=== PATIENT | female | born 1955 | race Caucasian/White ===

== ENCOUNTER → 2016-08-14 | Outpatient (CLI) | payer OTHER ==
[~2016-08-14] MED LIST: BIOIDENTICAL HORMONE; HYDROCODONE-AP1 EAC6 PO; IBUPROFEN 400400 M2 PO; NEURONTIN 300300 M1 PO; NORCO 5-325 TA1 EACH PO; NORFLEX100 MG; NORFLEX100 MG PO; PREDNISONE 10 M10 MG PO; PROGESTERONE100 MG PO; ULTRAM 50MG TAB50 MG PO
== END | disposition home or self-care (01) ==
LOC: MRI 14:16
DX: M25.551 Pain in right hip (principal)

== ENCOUNTER → 2017-02-17 | Outpatient (CLI) | payer OTHER ==
[~2017-02-17] VITALS: Ht 162.6 cm; Wt 74.4 kg
[~2017-02-17] MED LIST changes: +ALLEGRA ALLERG180 MG PO; +VITAMIN D310000 UNIT PO
--- NOTE | ~2017-02-17 | HPC ---
[facility] [address] [place] [address] PAIN MANAGEMENT CONSULTATION Name: KAYCE XAVIER [place] Room #: REG CL MRusty.#: [id number] Admission: 02/17/17 Attend Phys: Krishan Daley DO Discharge: Date of : 57 Report #: [id number] THIS REPORT FOR: //name// CC: Krishan Daley Referring Physician Javad Guzman DATE OF SERVICE: 02/17/2017 CHIEF COMPLAINT: Low back pain, right lower extremity pain with paresthesias. HISTORY OF PRESENT ILLNESS: As you know, the patient is a 61-year-old female who had history of low back pain, right lower extremity pain and paresthesias that presented 10/05/2015, no inciting injury or trauma. She returns today in followup visit having been evaluated by orthopedics and advised that some of her symptoms may be related to her right hip. She underwent a right intraarticular hip injection with orthopedics without improvement in symptoms even transiently. She was subsequently referred back to our clinic to trial a lumbar epidural injection and determine if her symptoms would be amenable to such procedures. She is placing pain score at 2-3/10, pain is exacerbated with walking, standing and sitting for long periods of time, improves with repositioning. ALLERGIES: No known drug allergies. CURRENT MEDICATIONS: Fexofenadine 180 mg once a day, ibuprofen 400 mg 3 times a day, and cholecalciferol 10,000 units per day. SOCIAL HISTORY: The patient continues to smoke 1 pack tobacco per day, has done so for 30 years. Denies IV or illicit drug use, admits to 2 alcohol beverages per week. 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 She is unaccompanied today. IMAGING: No new imaging available. PHYSICAL EXAMINATION: VITAL SIGNS: Blood pressure 160/69, pulse 79, respiratory rate 14 and unlabored, the patient is 98% on room air, height 5 feet 4 inches tall, weight 164 pounds, and BMI calculated 28.1. GENERAL: Well-developed, well-nourished, well-hydrated 61-year-old female, appearing her stated age, placing current pain score at 3/10. HEENT: Normocephalic, atraumatic. Pupils are equal, round, and reactive to light. NEUROLOGIC: Speech is fluent for patient. EXTREMITIES: Show no clubbing, no cyanosis, and no edema. MUSCULOSKELETAL: Lower extremity strength is equal and symmetrical 5/5. Seated straight leg raising negative. Supine straight leg raising appears positive on [facility] [address] [place] [address] PAIN MANAGEMENT CONSULTATION Name: KAYCE XAVIER [place] Room #: REG CL Stone#: [id number] Admission: 02/17/17 Attend Phys: Krishan Daley DO Discharge: Date of : 57 Report #: [id number] the right. Francia's test is mildly positive on the right. Modified Gaenslen's positive for axial low back pain. Ankle clonus negative. Babinski is negative. ASSESSMENT: 1. Symptomatic lumbar radiculopathy. 2. Displacement of lumbar intervertebral disk with radiculopathy. 3. Lumbosacral spondylosis with radiculopathy. 4. Chronic right hip pain secondary to impingement syndrome. 5. Chronic intractable pain. PLAN: 1. The patient returns today in followup visit per the request of her orthopedic surgery team to undergo an epidural injection under fluoroscopic guidance. Workup has been continued for possible right hip pain and imaging does show possible impingement syndrome of the right hip, though when the patient underwent intraarticular hip injection, she received no improvement in symptoms. Symptoms radiate from the low back, buttock area, radiates all the way down the leg to the foot and what appears to be an L5 dermatomal distribution. Given the fact the patient did not see improvement in symptoms with the intraarticular hip injection, she was subsequently referred to our clinic to trial a repeat epidural injection in hopes of improving pain, last epidural injection provided good benefit for the patient in fact 100% improvement in overall pain lasting for 5 months. She returns to undergo an epidural injection in hopes of improving symptoms. 2. No medication changes were made at today's visit. The patient will continue current medical therapy as previously prescribed. 3. The patient will return to our clinic on an as needed basis for possible repeat epidural injection. PROCEDURE NOTE DESCRIPTION OF PROCEDURE: L3-L4 right paramedian epidural steroid injection under fluoroscopic guidance. After obtaining written consent, the patient was taken back to fluoroscopy suite, placed in prone position with pillow under abdomen to decrease lumbar lordosis. Skin overlying lumbosacral area prepped and draped in aseptic fashion. Lumbar intervertebral spaces were identified by AP fluoroscopy. Skin and subcutaneous tissue overlying target site of injection was anesthetized with 3 mL of 1% lidocaine. A 20-gauge 3-1/2-inch Tuohy needle advanced under fluoroscopic guidance towards the epidural space using a right paramedian approach. Epidural space identified using loss of resistance to air technique. After negative aspiration for heme or cerebrospinal fluid, 1 mL of Omnipaque was injected. Lumbar epidurogram was confirmed using both AP and lateral fluoroscopy. After negative aspiration for [facility] [address] [place] [address] PAIN MANAGEMENT CONSULTATION Name: KAYCE XAVIER [place] Room #: REG CLI Stone#: [id number] Admission: 02/17/17 Attend Phys: Krishan Daley DO Discharge: Date of : 57 Report #: [id number] heme or cerebrospinal fluid, 5 mL of solution containing 2 mL 40 mg per mL, 80 mg total triamcinolone, 3 mL lidocaine 1% injected slowly. Needle retracted fpc, needle tract flushed 3 mL 1% lidocaine. Needle then removed. Sterile bandage placed over injection site. No new motor deficits present in the lower extremity following the procedure. The patient tolerated the procedure well, carefully escorted to the recovery room in stable condition. No apparent complications. After meeting discharge criteria, the patient discharged home. <ELECTRONICALLY SIGNED> By: Krishan Daley DO 02/25/17 [id number] Krishan Daley DO /nt
[2017-02-17 14:11] VITALS: BP 168/69
== END | disposition home or self-care (01) ==
LOC: PAIN 06:55
DX: M51.16 Intervertebral disc disorders with radiculopathy, lumbar region (principal); M47.27 Other spondylosis with radiculopathy, lumbosacral region; G89.29 Other chronic pain; M25.851 Other specified joint disorders, right hip; F17.210 Nicotine dependence, cigarettes, uncomplicated

== ENCOUNTER → 2017-06-16 | Outpatient (CLI) | payer OTHER ==
[~2017-06-16] VITALS: Ht 162.6 cm; Wt 73.0 kg
[~2017-06-16] MED LIST changes: +LOSARTAN-HCTZ1 EACH PO; +UNICOMPLEX M TA1 TA1 PO; +ZOLOFT25 MG PO
--- NOTE | ~2017-06-16 | HPC ---
[facility] [address] [place] [address] PAIN MANAGEMENT CONSULTATION Name: KAYCE XAVIER Room #: REG CL M.Scott.#: [id number] Admission: 06/16/17 Attend Phys: Krishan Daley DO Discharge: Date of : 57 Report #: [id number] THIS REPORT FOR: //name// CC: Krishan Guzman MD DATE OF SERVICE: 06/16/2017 CHIEF COMPLAINT: Low back pain, bilateral lower extremity pain, right greater than left. HISTORY OF PRESENT ILLNESS: As you know, the patient is a 61-year-old female who returns today in followup visit stating pain score of 8/10, states pain is sharp in nature, describes pain as exacerbated with turning, bending, getting in and out of car, sitting, improves with "walking it out." She also notes good efficacy with epidural injections providing about 100% improvement in overall pain lasting for a month and a half with previous injection. She returns today in followup visit having received precertification to undergo next in a series of lumbar epidural injections to address lumbar radicular symptoms. ALLERGIES: No known drug allergies. CURRENT MEDICATIONS: Ibuprofen, fexofenadine, cholecalciferol, multivitamin. SOCIAL HISTORY: The patient smokes 1 pack tobacco per day, has done so for 31 years. Denies IV or illicit drug use. Admits to 2 alcohol beverages per week. 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 She is unaccompanied at today's visit. IMAGING: No new imaging available. PHYSICAL EXAMINATION: VITAL SIGNS: Blood pressure 163/58, pulse is 77, respiratory rate 16, unlabored. The patient is 99% on room air. Height 5 feet 4 inches tall, weight 161 pounds, BMI calculated 27.6. GENERAL: Well-developed, well-nourished, well-hydrated 61-year-old female appearing her stated age. She is placing pain score today at 8/10. HEENT: Normocephalic, atraumatic. Pupils equal, round, reactive to light. Extraocular muscles are intact. Speech is fluent for patient. EXTREMITIES: Show no clubbing, no cyanosis, no edema. MUSCULOSKELETAL: Seated straight leg raising negative. Supine straight leg raising is mildly positive on the right. Fabere's test negative. Gait is mildly antalgic favoring right lower extremity over left. There is palpatory tenderness over the SI joint on the right when compared to left. [address] [address] PAIN MANAGEMENT CONSULTATION Name: KAYCE XAVIER [place] Room #: REG CLI Yvonne#: [id number] Admission: 06/16/17 Attend Phys: Krishan Daley DO Discharge: Date of : 57 Report #: [id number] ASSESSMENT: 1. Symptomatic lumbar radiculopathy. 2. Lumbosacral spondylosis with radicular symptoms. 3. Displacement of lumbar intervertebral disk with radiculopathy. 4. Chronic intractable pain. PLAN: 1. The patient returns today in followup visit having received precertification to undergo next in a series of epidural injections. The patient is reporting pain score at 8/10. She does report good improvement in symptoms with the epidural injection, 100% improvement lasting for nearly a month and then a slow and progressive return of symptoms. She returns today in followup visit to undergo this epidural injection. She has been advised risks and benefits of procedure, states understood and wished to proceed. 2. No medication changes were made at today's visit. The patient will continue current medical therapy as previously prescribed. 3. We will see the patient back in followup visit for next in a series of epidural injections under fluoroscopic guidance and to discuss other potential treatment options. PROCEDURE NOTE DESCRIPTION OF PROCEDURE: L3-L4 lumbar epidural steroid injection under fluoroscopic guidance. After obtaining written consent, the patient was taken back to fluoroscopy suite, placed in prone position with pillow under abdomen to decrease lumbar lordosis. Skin overlying lumbosacral area then prepped and draped in aseptic fashion. Lumbar intervertebral spaces identified by AP fluoroscopy. Skin and subcutaneous tissue overlying target site of injection was anesthetized with 3 mL of 1% lidocaine. A 20-gauge 3-1/2 inch Tuohy needle advanced under fluoroscopic guidance towards the epidural space using a right paramedian approach. Epidural space identified using loss of resistance to air technique. After negative aspiration for heme or cerebrospinal fluid, 1 mL of Omnipaque was injected. Lumbar epidurogram was confirmed using both AP and lateral fluoroscopy. After negative aspiration for heme or cerebrospinal fluid, 5 mL of a solution containing 2 mL 40 mg per mL, 80 mg total triamcinolone, 3 mL lidocaine 1% injected slowly. Needle retracted fci, flushed with 1 mL of 1% lidocaine and removed. Sterile bandage placed over injection site. No new motor deficits present in the lower extremity following the procedure. The patient tolerated procedure well, carefully escorted to the recovery room in [facility] [address] [place] [address] PAIN MANAGEMENT CONSULTATION Name: AKYCE XAVIER Room #: REG CLI Rusty.#: [id number] Admission: 06/16/17 Attend Phys: Krishan Daley DO Discharge: Date of : 57 Report #: [id number] stable condition. No apparent complications. After meeting discharge criteria, the patient discharged home. <ELECTRONICALLY SIGNED> By: Krishan Daley DO 06/23/17 [id number] Krishan Daley DO /nt
[2017-06-16 08:13] VITALS: BP 163/58
== END | disposition home or self-care (01) ==
LOC: PAIN 07:11
DX: M51.16 Intervertebral disc disorders with radiculopathy, lumbar region (principal); M47.27 Other spondylosis with radiculopathy, lumbosacral region; G89.29 Other chronic pain; F17.210 Nicotine dependence, cigarettes, uncomplicated; Z98.890 Other specified postprocedural states

== ENCOUNTER → 2018-01-08 | Outpatient (CLI) | payer OTHER ==
[~2018-01-08] MED LIST changes: -LOSARTAN-HCTZ1 EACH PO; -ZOLOFT25 MG PO
== END ==
LOC: MRI 14:42
DX: M47.26 Other spondylosis with radiculopathy, lumbar region (principal); M51.16 Intervertebral disc disorders with radiculopathy, lumbar region; M48.061 Spinal stenosis, lumbar region without neurogenic claudication

== ENCOUNTER → 2018-03-30 | Outpatient (CLI) | payer OTHER ==
[~2018-03-30] MED LIST changes: +LOSARTAN-HCTZ1 EACH PO; +ZOLOFT25 MG PO
== END ==
LOC: RAD 10:33
DX: Z12.31 Encounter for screening mammogram for malignant neoplasm of breast (principal)

== ENCOUNTER 2019-01-10 08:55 | Emergency (ER) | payer OTHER ==
[~2019-01-10] VITALS: Ht 162.6 cm; Wt 72.6 kg
[2019-01-10 08:55] VITALS: BP 153/76
[2019-01-10] MEDS ORDERED: ZOLOFT50 MG PO (09:02)
== END 2019-01-10 09:54 | disposition home or self-care (01) ==
LOC: ER 08:55
DX: S60.571A Other superficial bite of hand of right hand, initial encounter (principal); F17.210 Nicotine dependence, cigarettes, uncomplicated; Z98.890 Other specified postprocedural states; Z90.49 Acquired absence of other specified parts of digestive tract; Z88.1 Allergy status to other antibiotic agents; W55.51XA Bitten by raccoon, initial encounter; Y93.89 Activity, other specified; Y92.89 Other specified places as the place of occurrence of the external cause; Y99.8 Other external cause status

== ENCOUNTER 2019-01-13 13:14 | Emergency (ER) | payer OTHER ==
[~2019-01-13] VITALS: Ht 162.6 cm; Wt 70.3 kg
[~2019-01-13 13:14] MED LIST changes: +ZOLOFT50 MG PO
[2019-01-13 14:06] VITALS: BP 131/65
== END 2019-01-13 14:07 | disposition home or self-care (01) ==
LOC: ER 13:14
DX: Z23 Encounter for immunization (principal); Z20.3 Contact with and (suspected) exposure to rabies; F17.210 Nicotine dependence, cigarettes, uncomplicated; Z88.1 Allergy status to other antibiotic agents; Z79.899 Other long term (current) drug therapy; Z98.890 Other specified postprocedural states

== ENCOUNTER 2019-01-17 15:38 | Emergency (ER) | payer OTHER ==
[~2019-01-17] VITALS: Ht 162.6 cm; Wt 70.3 kg
[2019-01-17 15:38] VITALS: BP 154/76
== END 2019-01-17 15:42 | disposition home or self-care (01) ==
LOC: ER 15:38
DX: S40.811D Abrasion of right upper arm, subsequent encounter (principal); F17.210 Nicotine dependence, cigarettes, uncomplicated; Z90.49 Acquired absence of other specified parts of digestive tract; Z98.890 Other specified postprocedural states; Z88.1 Allergy status to other antibiotic agents; W55.51XD Bitten by raccoon, subsequent encounter

== ENCOUNTER 2019-01-24 14:57 | Emergency (ER) | payer OTHER ==
[~2019-01-24] VITALS: Ht 162.6 cm; Wt 72.6 kg
[2019-01-24 14:58] VITALS: BP 136/66
== END 2019-01-24 15:08 | disposition home or self-care (01) ==
LOC: ER 14:57
DX: Z23 Encounter for immunization (principal); Z48.00 Encounter for change or removal of nonsurgical wound dressing; F17.210 Nicotine dependence, cigarettes, uncomplicated; Z90.49 Acquired absence of other specified parts of digestive tract; Z98.890 Other specified postprocedural states; Z88.1 Allergy status to other antibiotic agents